=== PATIENT | male | born 1995 | race Two or more races ===

== ENCOUNTER 2017-01-16 19:06 | Emergency (ER) | payer SELFPAY ==
[2017-01-16] MEDS ORDERED: OXYCODONE-ACETAMINOPHEN 5-325 MG TABLET PO ONE ×2 (20:03→21:50)
--- NOTE | 2017-01-16 20:06 | ER Document Report ---
ED Medical Screen (RME) - General Chief Complaint: Nose Problem Stated Complaint: NOSE SWELLING Mode of Arrival: Ambulatory Information source: Patient, Relative Notes: This is a 21-year-old male who presents with a three-day history of increasing pain and swelling to his anterior nose, chest and the entrance to his nares, right greater than left. states that yesterday patient had a fever of 101. He has also had some chills and felt nauseated. He was seen at the urgent care earlier today and referred to the emergency department for possible I&D of nasal abscess. He has prior history of skin abscesses. I have greeted and performed a rapid initial assessment of this patient. A comprehensive ED assessment and evaluation of the patient, analysis of test results and completion of the medical decision making process will be conducted by additional ED providers. TRAVEL OUTSIDE OF THE [place] IN LAST 30 DAYS: No - Related Data Allergies/Adverse Reactions: amoxicillin [Amoxicillin] Allergy (Verified 01/16/16 05:03) Past Medical History Renal/ Medical History: Denies: Hx Peritoneal Dialysis Physical Exam - Vital signs Vitals: Temp Pulse Resp BP Pulse Ox 98.7 F 95 16 160/91 H 97 01/16/17 19:13 01/16/17 19:13 01/16/17 19:13 01/16/17 19:13 01/16/17 19:13 Course - Vital Signs Vital signs: Temp Pulse Resp BP Pulse Ox 98.7 F 95 16 160/91 H 97 01/16/17 19:13 01/16/17 19:13 01/16/17 19:13 01/16/17 19:13 01/16/17 19:13 - Laboratory Result Diagrams: 01/16/17 20:15 01/16/17 20:15 Laboratory results interpreted by me: 01/16/17 20:15 Glucose 119 H
[2017-01-16 20:33] LABS: ABSOLUTE BASOPHILS # (AUTO) 0.1 10^3/uL (0.0-0.2); ABSOLUTE EOSINOPHILS # (AUTO) 0.2 10^3/uL (0.0-0.6); ABSOLUTE LYMPHOCYTES (AUTO) 3.1 10^3/uL (0.5-4.7); ABSOLUTE MONOCYTES (AUTO) 0.8 10^3/uL (0.1-1.4); ABSOLUTE NEUT (AUTO) 5.7 10^3/uL (1.7-8.2); BASOPHILS % (AUTO) 0.8 % (0-2); EOSINOPHILS % (AUTO) 1.6 % (0-6); HEMATOCRIT 44.4 % (37.9-51.0); HEMOGLOBIN 15.3 g/dL (13.5-17.0); HGB HCT DIFFERENCE 1.5; LYMPHOCYTES % (AUTO) 31.4 % (13-45); MEAN CORPUSCULAR HEMOGLOBIN 30.3 pg (27.0-33.4); MEAN CORPUSCULAR HGB CONC 34.4 g/dL (32.0-36.0); MEAN CORPUSCULAR VOLUME 88 fl (80-97); MONOCYTES % (AUTO) 8.1 % (3-13); RED BLOOD COUNT 5.05 10^6/uL (4.35-5.55); RED CELL DISTRIBUTION WIDTH 13.2 % (11.5-14.0); SEGMENTED NEUTROPHILS % (AUTO) 58.1 % (42-78); WHITE BLOOD COUNT 9.9 10^3/uL (4.0-10.5)
[2017-01-16 20:44] LABS: ANION GAP 15 (5-19); BLOOD UREA NITROGEN 15 mg/dL (7-20); CALCIUM 9.9 mg/dL (8.4-10.2); CARBON DIOXIDE 28 mmol/L (22-30); CHLORIDE 101 mmol/L (98-107); CREATININE RESULT 0.92 mg/dL (0.52-1.25); GLUCOSE 119 mg/dL (75-110); POTASSIUM 4.1 mmol/L (3.6-5.0); SODIUM 143.7 mmol/L (137-145)
[2017-01-16] MEDS ORDERED: SULFAMETHOXAZOLE/TRIMETHOPRIM 800-160 MG TABLET PO ONE (21:50)
--- NOTE | 2017-01-16 22:07 | ER Document Report ---
ED General - General Chief Complaint: Nose Problem Stated Complaint: NOSE SWELLING Mode of Arrival: Ambulatory Information source: Patient TRAVEL OUTSIDE OF THE [place] IN LAST 30 DAYS: No - HPI Notes: This is a 21-year-old male who presents with a three-day history of increasing pain and swelling to his anterior nose, chest and the entrance to his nares, right greater than left. states that yesterday patient had a fever of 101. He has also had some chills and felt nauseated. He was seen at the urgent care earlier today and referred to the emergency department for possible I&D of nasal abscess. He has prior history of skin abscesses. Patient states he squeezed the area of the abscess and seemed to get worse. No history of diabetes. No chest pain or pharyngitis or difficulty breathing. No abdominal pain. No vomiting. - Related Data Allergies/Adverse Reactions: amoxicillin [Amoxicillin] Allergy (Verified 01/16/16 05:03) Past Medical History - General Information source: Patient, Relative - Social History Smoking Status: Never Smoker Frequency of alcohol use: None Drug Abuse: None Family History: Reviewed & Not Pertinent Patient has suicidal ideation: No Patient has homicidal ideation: No Renal/ Medical History: Denies: Hx Peritoneal Dialysis Review of Systems - Review of Systems Notes: REVIEW OF SYSTEMS: CONSTITUTIONAL : Reports previous fever EENT: Denies eye, ear, throat, or mouth pain or symptoms. Denies sinus congestion or discharge. Denies throat, tongue, or mouth swelling or difficulty swallowing. CARDIOVASCULAR: Denies chest pain. Denies palpitations or racing or irregular heart beat. Denies ankle edema. RESPIRATORY: Denies cough, cold, or chest congestion. Denies shortness of breath, difficulty breathing, or wheezing. GASTROINTESTINAL: Denies abdominal pain or distention. Denies nausea, vomiting , or diarrhea. Denies blood in vomitus, stools, or per rectum. Denies black, tarry stools. Denies constipation. GENITOURINARY: Denies difficulty urinating, painful urination, burning, frequency, blood in urine, or discharge. MUSCULOSKELETAL: Denies back or neck pain or stiffness. Denies joint pain or swelling. SKIN: Denies rash, lesions or sores. HEMATOLOGIC : Denies easy bruising or bleeding. LYMPHATIC: Denies swollen, enlarged glands. NEUROLOGICAL: Denies confusion or altered mental status. Denies passing out or loss of consciousness. Denies dizziness or lightheadedness. Denies headache. Denies weakness or paralysis or loss of use of either side. Denies problems with gait or speech. Denies sensory loss, numbness, or tingling. Denies seizures. PSYCHIATRIC: Denies anxiety or stress. Denies depression, suicidal ideation, or homicidal ideation. ALL OTHER SYSTEMS REVIEWED AND NEGATIVE. Dictation was performed using [employer] voice recognition software Physical Exam - Vital signs Vitals: Temp Pulse Resp BP Pulse Ox 98.7 F 95 16 160/91 H 97 01/16/17 19:13 01/16/17 19:13 01/16/17 19:13 01/16/17 19:13 01/16/17 19:13 - Notes Notes: PHYSICAL EXAMINATION: GENERAL: Well-appearing, well-nourished and in no acute distress. HEAD: Atraumatic, normocephalic. EYES: Pupils equal round and reactive to light, extraocular movements intact, sclera anicteric, conjunctiva are normal. ENT: Nares patent, oropharynx clear without exudates. Moist mucous membranes. Patient has an abscess to the lower anterior nasal septal region. No significant facial cellulitis. No extension into the mouth. NECK: Normal range of motion, supple without lymphadenopathy LUNGS: Breath sounds clear to auscultation bilaterally and equal. No wheezes rales or rhonchi. HEART: Regular rate and rhythm without murmurs ABDOMEN: Soft, nontender, nondistended abdomen. No guarding, no rebound. No masses appreciated. Musculoskeletal: Normal range of motion, no pitting or edema. No cyanosis. NEUROLOGICAL: Cranial nerves grossly intact. Normal speech, normal gait. PSYCH: Normal mood, normal affect. SKIN: Warm, Dry, normal turgor, no rashes or lesions noted. Course - Re-evaluation Re-evalutation: 01/16/17 22:06 Patient given Percocet and Bactrim by mouth. Blood work showed no significant abnormality. Following discussion of risks, alternatives, benefits, patient agreed to incision and drainage of the facial abscess. Wound area was cleaned with Hibiclens, then was locally infiltrated with lidocaine 1% without epinephrine 0.4 mL, then the wound was incised with a #11 scalpel and purulent material was obtained which was sent for culture. The wound was irrigated with saline and then was sterilely prepped and draped cleaned with Hibiclens again and then was packed with quarter-inch iodoform gauze. Patient tolerated the procedure with some moderate pain, blood loss approximately 10 mL. No evidence for significant facial cellulitis or extension of the abscess. 01/16/17 23:04 - Vital Signs Vital signs: Temp Pulse Resp BP Pulse Ox 98.7 F 95 16 160/91 H 97 01/16/17 19:13 01/16/17 19:13 01/16/17 19:13 01/16/17 19:13 01/16/17 19:13 - Laboratory Result Diagrams: 01/16/17 20:15 01/16/17 20:15 Laboratory results interpreted by me: 01/16/17 20:15 Glucose 119 H Discharge - Discharge Clinical Impression: Facial abscess Condition: Stable Disposition: HOME, SELF-CARE Instructions: Trimethoprim-Sulfa ([facility]), Oral Narcotic Medication ([facility]), Post Incision and Drainage, Abscess ([facility]) Prescriptions: Hydrocodone/Acetaminophen [[place] 5-325 mg Tablet] 1 tab PO Q4HP PRN #20 tablet PRN Reason: Ibuprofen 800 mg PO Q8HP PRN #30 tablet PRN Reason: Sulfamethoxazole/Trimethoprim [Bactrim Ds Tablet] 2 each PO BID #40 tablet Forms: Return to Work Print Language: Latvian
[2017-01-16] MEDS ORDERED: LIDOCAINE 1% INJ (10 MG/ML) 10 ML MDV INJ ONE (22:24)
[2017-01-16] MEDS ORDERED: LIDOCAINE 1% INJ-PF (10 MG/ML) 30 ML SDV ONE (22:30)
[2017-01-16] MEDS ORDERED: HYDROCODONE/ACETAMINOPHEN 5-325 MG 6 TAB/DSPK PO PRN (23:01)
[2017-01-16 23:36] VITALS: BP 148/97
== END 2017-01-16 23:35 | disposition home or self-care (01) ==
LOC: ER 19:06
DX: L02.01 Cutaneous abscess of face (principal); R50.9 Fever, unspecified; R11.0 Nausea; Z88.0 Allergy status to penicillin
CPT/HCPCS: 99283; 36415; 87040; 87070; 87205; 85025; 87075; 87077; 80048; 87186; J3490